=== PATIENT | male | born 1980 | race Caucasian/White ===

== ENCOUNTER 2022-03-18 11:15 | Inpatient (IN) | payer MEDICAID ==
[~2022-03-18] VITALS: Ht 175.3 cm; Wt 57.4 kg
[2022-03-18 11:15] VITALS: BP_SYST 162
--- NOTE | 2022-03-18 11:25 | NUR ---
RECEIVED PT FROM SHANEKA GÓMEZ. PT BIBS FOR C/O DIZZINESS FROM DRIVING OCCURING ONE HOUR AGO AND BRIGHT RED BLOODY STOOL X2 IN THE LAST 24 HOURS. PT IS AAOX4. RESP E/U. ON R/A. DENIES N/V/D/C. DISTAL PULSES NORMAL, SKIN WARM, NO EDEMA. PT DENIES PAIN SIDERAILS UP X2.
--- NOTE | 2022-03-18 11:25 | NUR ---
DR. TESFAYE AT BEDSIDE TO ASSESS PT.
--- NOTE | 2022-03-18 11:52 | NUR ---
EKG OBTAINED. PT TAKEN FOR CT SCAN AND XRAY.
[2022-03-18 12:01] LABS: BASOPHILS # (AUTO) 0.1 K/uL (0.0-0.2); BASOPHILS % (AUTO) 0.8 % (0.0-2.0); EOSINOPHILS % (AUTO) 0.4 % (0.0-4.0); HEMATOCRIT 38.2 % (36-54); LYMPHOCYTES # (AUTO) 0.6 K/uL (1.0-5.5); LYMPHOCYTES % (AUTO) 7.8 % (20.5-51.5); MEAN CORPUSCULAR VOLUME 96 fL (79.0-98.0); MONOCYTES # (AUTO) 0.6 K/uL (0.0-1.0); MONOCYTES % (AUTO) 7.9 % (1.7-9.3); NEUTROPHILS % (AUTO) 83.1 % (40.0-70.0); PLATELET COUNT (AUTO) 162 K/uL (130-430); RED CELL DISTRIBUTION WIDTH 16.6 % (9.0-15.0); WHITE BLOOD COUNT (AUTO) 7.3 K/uL (4.8-10.8)
[2022-03-18 12:16] LABS: ANION GAP 15 (5-15); CALCIUM 8.2 mg/dL (8.4-11.0); CHLORIDE 97 mmol/L (98-107); CREATININE 7.29 mg/dL (0.55-1.30); UREA NITROGEN, BLOOD 96 mg/dL (8-21)
[2022-03-18 12:20] LABS: PROTHROMBIN TIME 10.4 SECS (9.5-12.5)
[2022-03-18 12:27] LABS: ALANINE AMINOTRANSFERASE 14 U/L (12-78); ALBUMIN 3.1 g/dL (3.4-4.8); ASPARTATE AMINOTRANSFERASE 9 U/L (10-37); TOTAL BILIRUBIN 0.5 mg/dL (0.0-1.0)
[2022-03-18 12:36] LABS: GFR AFRICAN AMERICAN 11 mL/min (>90)
[2022-03-18 12:45] LABS: GLUCOSE 453 mg/dL (70-99); POTASSIUM 6.1 mmol/L (3.5-5.1)
--- NOTE | 2022-03-18 12:47 | NUR ---
CRITICALS RECEIVED, DR TESFAYE AND PRIMARY RN INFORMED. PT ON BEEF TRIMMER.
--- NOTE | 2022-03-18 13:05 | NUR ---
COVID test given to lab at 12:58
[2022-03-18] MEDS ORDERED: SODIUM POLYSTYRENE SULFONATE 15 GM/60 ML UDBTL PO ONE (13:15)
[2022-03-18] MEDS ORDERED: NACL 0.9% 1,000 ML IV ONE (13:15)
[2022-03-18] MEDS ORDERED: SODIUM BICARBONATE 8.4% JECT 50 MEQ/50 ML SYRINGE IVP ONE (13:15)
--- NOTE | 2022-03-18 13:20 | NUR ---
per ed admitting, chandler, insurance office is not answering and unable to get ahold of anyone. per facesheet: [facility]
[2022-03-18] MEDS ORDERED: D5NS 500 ML IV ONE ×2 (15:15→15:30)
--- NOTE | 2022-03-18 15:25 | NUR ---
DR. HERNANDEZ AND DR. CADENA MADE AWARE OF CONSULT REQUEST FOR SERVICE. CONSENT OBTAINED FOR PERMACATH.
--- NOTE | 2022-03-18 16:02 | NUR ---
DR. CADENA AT BEDSIDE, PREFORMED SANFORD CATH PLACEMENT TO LEFT UPPER CHEST, 2 LUMENS. SITE COVERED WITH CDI OCCLUSIVE DRESSING. PT TOLERATED PROCEDURE WELL.
[2022-03-18] MEDS ORDERED: ACET325T53 PO (17:03)
[2022-03-18] MEDS ORDERED: LIP80 PO (17:04)
[2022-03-18] MEDS ORDERED: ASPI-1393 PO (17:04)
[2022-03-18] MEDS ORDERED: CARV6.2554 PO (17:05)
[2022-03-18] MEDS ORDERED: CYAN100010 PO (17:07)
[2022-03-18] MEDS ORDERED: CYAN100T44 PO (17:07)
[2022-03-18] MEDS ORDERED: DORZ1DRO7 OP (17:07)
--- NOTE | 2022-03-18 17:07 | NUR ---
Patient will be admitted to care of SHANEKA LEONARD. Admitted to TELEMETRY unit. Will go to room 123A. Belongings list completed. Complete and up to date summary report printed. SBAR report to be given at bedside with opportunity for questions.
[2022-03-18] MEDS ORDERED: FAMO10TA41 PO (17:10)
[2022-03-18] MEDS ORDERED: FER300L PO (17:11)
[2022-03-18] MEDS ORDERED: OMEG-158 PO (17:12)
[2022-03-18] MEDS ORDERED: NEU300 PO (17:13)
[2022-03-18] MEDS ORDERED: XALEYE OP (17:15)
[2022-03-18] MEDS ORDERED: LOSA25TA3 PO (17:16)
[2022-03-18] MEDS ORDERED: HYDR-3927 PO (17:17)
[2022-03-18] MEDS ORDERED: CLOP100P MC (17:18)
[2022-03-18] MEDS ORDERED: FOLI-43 PO (17:21)
[2022-03-18] MEDS ORDERED: REN800 PO ×2 (17:21)
[2022-03-18 17:52] VITALS: BP_SYST 157
[2022-03-18] MEDS ORDERED: CALCIUM GLUCONATE 2 GM in NS 100 ML IV ONE (18:00)
--- NOTE | 2022-03-18 18:45 | NUR ---
patient has 795 dollars in tate bedside. offered patient to place money in hospital safe. patient refused. wants tate bedside. tate handed back to patient. patient informed staff is not responsible for tate if it is bedside. patient states he understands and confirms he would like tate bedside with him. tate verified by 2 SHANEKA Singer
[2022-03-18 20:30] VITALS: BP_SYST 170
[2022-03-18] MEDS ORDERED: HEPARIN SODIUM,PORCINE 5,000 UNITS/ML VIAL IVP ONE (20:45)
--- NOTE | 2022-03-18 21:00 | NUR ---
Patient resting in bed, unlabored breathing on room air, no complaint of pain or distress noted. Dialysis in progress.
--- NOTE | 2022-03-19 00:45 | NUR ---
Dialysis completed earlier with 2.6 L out. Patient has refused ordered IV fluids, calcium, and lab draw for BMP that was delayed until after dialysis. Dr. Lemon was at bedside to see patient and was made aware of patient's refusal and pre-dialysis labs. Per Dr. Lemon, ok to hold IV fluids and calcium and to wait for morning lab draws. Dr. Lemon also stated that patient may need permanent dialysis access before discharge.
[2022-03-19 01:15] VITALS: BP_SYST 146
[2022-03-19] MEDS ORDERED: ACETAMINOPHEN 325 MG TABLET PO PRN (02:00)
[2022-03-19] MEDS ORDERED: HYDROcodone/ACETAMIN 10-325 MG TAB PO PRN (02:00)
--- NOTE | 2022-03-19 07:30 | NUR ---
Patient sleeping in bed, unlabored breathing on room air. Report given to oncoming nurse.
[2022-03-19 07:49] LABS: BASOPHILS # (AUTO) 0.1 K/uL (0.0-0.2); BASOPHILS % (AUTO) 0.9 % (0.0-2.0); EOSINOPHILS % (AUTO) 0.8 % (0.0-4.0); HEMATOCRIT 36.9 % (36-54); LYMPHOCYTES # (AUTO) 0.7 K/uL (1.0-5.5); LYMPHOCYTES % (AUTO) 12.6 % (20.5-51.5); MEAN CORPUSCULAR VOLUME 94 fL (79.0-98.0); MONOCYTES # (AUTO) 0.6 K/uL (0.0-1.0); MONOCYTES % (AUTO) 10.2 % (1.7-9.3); NEUTROPHILS # (AUTO) 4.3 K/uL (1.8-7.7); NEUTROPHILS % (AUTO) 75.5 % (40.0-70.0); PLATELET COUNT (AUTO) 162 K/uL (130-430); RED BLOOD CELL COUNT(AUTO) 3.94 MIL/uL (4.2-6.2); RED CELL DISTRIBUTION WIDTH 15.8 % (9.0-15.0); WHITE BLOOD COUNT (AUTO) 5.7 K/uL (4.8-10.8)
--- NOTE | 2022-03-19 07:52 | NUR ---
arrived bedside to introduce and inform patient care plan for the day. patient refused morning vitals. will attempt to take vitals once patient agrees.
[2022-03-19 08:00] VITALS: BP_SYST 156
[2022-03-19 08:21] LABS: CREATININE 5.1 mg/dL (0.55-1.30); POTASSIUM 4.1 mmol/L (3.5-5.1)
[2022-03-19] MEDS ORDERED: CLOPIDOGREL BISULFATE 75 MG TABLET PO SCH (09:00)
[2022-03-19] MEDS ORDERED: CYANOCOBALAMIN 1000 mCg TABLET PO SCH (09:00)
[2022-03-19] MEDS: LOSARTAN POTASSIUM 25 MG TABLET PO SCH ×2 (09:17→21:11)
[2022-03-19] MEDS: FAMOTIDINE 20 MG TABLET PO SCH (09:17)
[2022-03-19] MEDS: FOLIC ACID 1 MG TABLET PO SCH (09:17)
[2022-03-19] MEDS: FERROUS SULFATE 300 MG/5 ML UDC PO SCH ×2 (09:17→21:09)
[2022-03-19] MEDS: TIMOLOL MALEATE 0.25% OPHTHALMIC DROPS 5 ML OP SCH ×2 (09:17→21:16)
[2022-03-19] MEDS: OMEGA-3/DHA/EPA/FISH OIL 1 GM CAPSULE PO SCH ×2 (09:17→21:11)
[2022-03-19] MEDS: DORZOLAMIDE 2% OPHTHALMIC SOLN 5ML OP SCH ×3 (09:17→21:18)
[2022-03-19] MEDS: GABAPENTIN 300 MG CAPSULE PO SCH (09:18)
[2022-03-19] MEDS: ASPIRIN 81 MG TABLET(ECOTRIN) PO SCH (09:18)
[2022-03-19] MEDS: SEVELAMER CARBONATE 800 MG TABLET PO SCH ×3 (09:19→17:00)
[2022-03-19] MEDS ORDERED: SEVELAMER HCL Non-Formulary 800 MG TABLET PO SCH (10:00)
[2022-03-19 12:00] VITALS: BP_SYST 156
[2022-03-19 16:00] VITALS: BP_SYST 163
--- NOTE | 2022-03-19 19:30 | NUR ---
RECEIVED REPORT FROM DAY SHIFT NURSE. PT AWAKE AND ORIENTED. DENIED ANY DISTRESS.
[2022-03-19 20:00] VITALS: BP_SYST 156
[2022-03-19] MEDS: LATANOPROST 2.5 ML DROPS (XALATAN) OP SCH ×2 (21:00→21:12)
[2022-03-19] MEDS: ATORVASTATIN 20 MG TABLET PO SCH (21:10)
--- NOTE | 2022-03-19 21:15 | NUR ---
CONSULTATION PAGED/CALLED Reason for Consultation: PERMAVATH PLACEMENT Person Who was Notified:LATOYA Consulting Physician: Karyn ATWOOD Specialty: Ordering Physician: Juve WOO Addendum: 03/19/22 at 2120 by Jaz Mahoney CNA DOCTOR HORVATH IS COVERING FOR RAI
--- NOTE | 2022-03-19 21:36 | NUR ---
CONSULTATION PAGED/CALLED Reason for Consultation: PERMACATH PACEMENT Person Who was Notified: ALEXANDRU Consulting Physician: ALEXANDRU Legal Word Processor Specialty: Ordering Physician: Juve WOO
[2022-03-19] MEDS: CARVEDILOL 6.25 MG TABLET (COREG) PO SCH (22:33)
[2022-03-20] VITALS: BP_SYST 149
--- NOTE | 2022-03-20 00:08 | NUR ---
CONSULTATION PAGED/CALLED Reason for Consultation: CAD Person Who was Notified:KANDIS Consulting Physician: PINO Beater And Pulper Feeder Specialty: Ordering Physician: Juve WOO
[2022-03-20 04:15] VITALS: BP_SYST 148
--- NOTE | 2022-03-20 06:49 | NUR ---
PT SLEPT WELL. NO C/O ANY DISTRESS. PT NONCOMPLIANT WITH MEDICATION. CHANGED BILATERAL STUMP DRESSING-WTD. LEFT IJ SANFORD CATHETER-DRESSING INTACT.
--- NOTE | 2022-03-20 07:25 | NUR ---
opening note Received SBAR to night RN. Patient in bed, respirations even, non labored, bed in low and locked position call light within reach,
--- NOTE | 2022-03-20 07:38 | NUR ---
SBAR WAS GIVEN TO NIKO MUNROE.
[2022-03-20 08:00] VITALS: BP_SYST 155
[2022-03-20] MEDS: SEVELAMER CARBONATE 800 MG TABLET PO SCH ×4 (08:49→17:31)
[2022-03-20] MEDS: FERROUS SULFATE 300 MG/5 ML UDC PO SCH ×3 (08:50→20:48)
--- NOTE | 2022-03-20 08:50 | NUR ---
refused medication patient refused ferrous sulfate, educated patient on the indications of medication, patient verbalized understanding, continued to refuse medication
[2022-03-20] MEDS: LOSARTAN POTASSIUM 25 MG TABLET PO SCH ×2 (08:51→20:49)
[2022-03-20] MEDS: FOLIC ACID 1 MG TABLET PO SCH (08:55)
[2022-03-20] MEDS: TIMOLOL MALEATE 0.25% OPHTHALMIC DROPS 5 ML OP SCH ×2 (08:55→20:51)
[2022-03-20] MEDS: OMEGA-3/DHA/EPA/FISH OIL 1 GM CAPSULE PO SCH ×2 (08:55→20:49)
[2022-03-20] MEDS: ASPIRIN 81 MG TABLET(ECOTRIN) PO SCH (08:56)
[2022-03-20] MEDS: GABAPENTIN 300 MG CAPSULE PO SCH (08:56)
[2022-03-20] MEDS: DORZOLAMIDE 2% OPHTHALMIC SOLN 5ML OP SCH ×3 (08:56→20:51)
[2022-03-20] MEDS: CYANOCOBALAMIN 1000 mCg TABLET PO SCH (08:56)
[2022-03-20] MEDS: FAMOTIDINE 20 MG TABLET PO SCH (08:56)
--- NOTE | 2022-03-20 11:40 | NUR ---
HIGH ALERT NOTE: Called Dr. hale back at identified within the medical roster to verify physician authenticity.
[2022-03-20] MEDS ORDERED: HEPARIN SODIUM,PORCINE 5,000 UNITS/ML VIAL MC ONE (11:45)
[2022-03-20 12:16] VITALS: BP_SYST 138
--- NOTE | 2022-03-20 12:45 | NUR ---
dialysis completed 2.5L out
--- NOTE | 2022-03-20 12:59 | NUR ---
refused medication patient refused medication, educated to the indications of medication, patient continued to refuse
--- NOTE | 2022-03-20 14:48 | NUR ---
refused medication patient refused medication, educated to the indications of medication, patient continued to refuse
--- NOTE | 2022-03-20 15:00 | NUR ---
nurse note patient upset regarding the wait for procedure to have perma cath inserted. Informed that we are waiting on the surgeon to come in and make arrangements. Patient states that he should just go home and wait. Informed patient that surgeon should be in today or tomorrow.
[2022-03-20 16:00] VITALS: BP_SYST 162
--- NOTE | 2022-03-20 16:00 | NUR ---
spoke with dr Jackson regarding possible surgery tomorrow. New orders received.
[2022-03-20 16:34] LABS: BILIRUBIN,URINE NEGATIVE (NEGATIVE); BLOOD, URINE 2+ (NEGATIVE); CLARITY/URINE CLEAR (CLEAR); COLOR,URINE YELLOW (YELLOW); GLUCOSE,URINE 3+ (NEGATIVE); KETONES,URINE TRACE (NEGATIVE); LEUKOCYTE ESTERASE ,URINE NEGATIVE (NEGATIVE); NITRITE, URINE NEGATIVE (NEGATIVE); PROTEIN URINE 3+ (NEGATIVE); UROBILINOGEN,URINE 0.2 (0.2-1.0)
[2022-03-20 16:49] LABS: BACTERIA,URINE FEW /HPF (None Seen); MUCUS,URINE None Seen /LPF (None Seen); WBC,URINE 0-3 /HPF (0-3)
--- NOTE | 2022-03-20 17:31 | NUR ---
refused medication refused medication, educated patient on the indications patient continued to refuse
--- NOTE | 2022-03-20 18:28 | NUR ---
MD DR HERNANDEZ BEDSIDE EXAMINING PATIENT
--- NOTE | 2022-03-20 18:54 | NUR ---
NURSE NOTE PATIENT IN BED,RESPIRATIONS EVEN, NON LABORED, BED IN LOW AND LOCKED POSITION, CALL LIGHT WITHIN REACH. DENIES ANY PAIN OR DISCOMFORT.
--- NOTE | 2022-03-20 18:56 | NUR ---
TRANSLATION YANDEL DASILVA WAS ABLE TO HELP WITH PERUVIAN TRANSLATION BETWEEN PATIENT AND MYSELF TODAY
--- NOTE | 2022-03-20 19:20 | NUR ---
CLOSING NOTE PROVIDED SBAR TO NIGHT RN, PATIENT IN BED, RESPIRATIONS EVEN, NON LABORED, BED IN LOW AND LOCKED POSITION,CALL LIGHT WITHIN REACH. ENDORSED WOUND CARE AND COMPLETION OF SURGICAL CHECKLIST TO NIGHT RN. ENDORSED CARE TO NIGHT RN
--- NOTE | 2022-03-20 19:55 | NUR ---
DR.MULLANGI TOVAR HERE TO SEE THE PATIENT AND DISCUSS WITH PATIENT THE PROCEDURE FOR THE INSERTION OF TUNNELED HEMODIALYSIS CATHETER WITH INWEAVER ALBA ON THE IPAD #[id number] FOR [employer] SCHEDULED TOMORROW. WILL CONTINUE TO MONITOR.
[2022-03-20] MEDS: CARVEDILOL 6.25 MG TABLET (COREG) PO SCH (20:49)
[2022-03-20] MEDS: ATORVASTATIN 20 MG TABLET PO SCH (20:50)
[2022-03-20] MEDS: LATANOPROST 2.5 ML DROPS (XALATAN) OP SCH (20:50)
[2022-03-21 00:46] VITALS: BP_SYST 137
--- NOTE | 2022-03-21 03:10 | NUR ---
NOTES PATIENT AWAKE, NO COMPLAINTS AT THIS TIME, WOUND CARE AND CHG BATH DONE. WILL CONTINUE TO MONITOR.
--- NOTE | 2022-03-21 07:20 | NUR ---
opening note Received SBAR from night RN. Patient in bed respirations even, non labored, bed in low and locked position, call light within reach. NPO for surgery
--- NOTE | 2022-03-21 07:53 | NUR ---
REFUSED JPATIENT REFUSED MORNING VITALS
[2022-03-21] MEDS: SEVELAMER CARBONATE 800 MG TABLET PO SCH ×3 (08:00→18:15)
--- NOTE | 2022-03-21 08:15 | NUR ---
physical assessment patient refused physical assessment. educated regarding the indications for assessment, patient ignored me.
[2022-03-21] MEDS: DORZOLAMIDE 2% OPHTHALMIC SOLN 5ML OP SCH ×4 (09:00→23:42)
[2022-03-21] MEDS: GABAPENTIN 300 MG CAPSULE PO SCH ×2 (09:00→09:37)
[2022-03-21] MEDS: FOLIC ACID 1 MG TABLET PO SCH (09:00)
[2022-03-21] MEDS: FERROUS SULFATE 300 MG/5 ML UDC PO SCH ×2 (09:00→23:35)
[2022-03-21] MEDS: CYANOCOBALAMIN 1000 mCg TABLET PO SCH (09:00)
[2022-03-21] MEDS: ASPIRIN 81 MG TABLET(ECOTRIN) PO SCH (09:00)
[2022-03-21] MEDS: LOSARTAN POTASSIUM 25 MG TABLET PO SCH ×2 (09:00→23:34)
[2022-03-21] MEDS: TIMOLOL MALEATE 0.25% OPHTHALMIC DROPS 5 ML OP SCH ×3 (09:00→23:41)
[2022-03-21] MEDS: FAMOTIDINE 20 MG TABLET PO SCH (09:00)
[2022-03-21] MEDS: OMEGA-3/DHA/EPA/FISH OIL 1 GM CAPSULE PO SCH ×2 (09:00→23:34)
[2022-03-21 09:38] LABS: CALCIUM 8.2 mg/dL (8.4-11.0); POTASSIUM 4.5 mmol/L (3.5-5.1)
--- NOTE | 2022-03-21 10:47 | NUR ---
tele monitor patient was off the monitor, i went in to re attach, patient refused said "my heart is fine, no I don't want it". educated patient regarding the indications of tele monitor. patient did not reply
--- NOTE | 2022-03-21 13:15 | NUR ---
Notes Patient very upset and noncompliant with interventions throughout the morning. Patient has declined from his nurse SHANEKA Singer and other nurses to take his vital signs and to have tele monitor on. Patient stated that his heart is well and does not need to be monitored. Surgery nurse was in the room, trying to prep patient for surgery. Patient was putting on his regular clothing stating that if he isn't receiving the surgery soon he's rather go home. Patient started speaking Urdu stating that he is upset with his experience, his dinner from last night was not up to his par. Patient upset that he has not eaten since last night and that he needs to eat because he is a diabetic. Patient was educated numerous times why he is NPO, for surgery, and educated on his diet. Patient started increasing the volume on his phone and stated to leave him alone. Security was called in case patient decided to leave AMA. Dr. Hall came to see patient at bedside at this time explaining the importance for the patient to stay and continue with the treatment plan.Patient was educated in the risks of leaving AMA and that he is responsible for outcomes if he insists on leaving AMA. Patient was looking at his phone during the whole interaction. Patient chose to continue with surgery plan. Patient was given a clean gown and was starting to change.
[2022-03-21 13:42] LABS: HEMATOCRIT 37.7 % (36-54); MEAN CORPUSCULAR VOLUME 93 fL (79.0-98.0); PLATELET COUNT (AUTO) 175 K/uL (130-430); RED BLOOD CELL COUNT(AUTO) 4.06 MIL/uL (4.2-6.2); RED CELL DISTRIBUTION WIDTH 15.5 % (9.0-15.0); WHITE BLOOD COUNT (AUTO) 5.7 K/uL (4.8-10.8)
--- NOTE | 2022-03-21 15:17 | NUR ---
patient in the room with video email marketing assistant ID [id number] and Nurse Julita as witness. informed patient that surgery was cancelled for the day due to patient inion medication plavix that was only discontinued [address] Lindquist, needs 3 more days to be off of plavix. I informed patient that we will order him his lunch and will call dialysis nurse for his scheduled dialysis today. Patient was not happy and that he wants to leave against medical advice. [facility] already informed the RN that they will not take patient back without a doctors order. Patient stopped talking to us / ended the video call with the email marketing assistant by calling somebody on his cell
[2022-03-21 15:19] LABS: BAND % (MANUAL) 0 % (0-6); BASOPHILS % (MANUAL) 0 % (0-2); EOSINOPHILS % (MANUAL) 0 % (0-7); LYMPHOCYTES % (MANUAL) 15 % (20-46); MONOCYTES % (MANUAL) 3 % (0-11)
--- NOTE | 2022-03-21 15:45 | NUR ---
canceled surgery surgery cancel for today patient has only been on off of Plavix x [address] Contreras, patient must be off for a total of 5 days before procedure can be done. MD younger
[2022-03-21] MEDS ORDERED: DEXTROSE 50% JECT 50 ML DISP.SYRIN IVP PRN (16:30)
[2022-03-21] MEDS: INSULIN REGULAR, HUMAN 100 UNITS/ML, 3 ML VIAL (humuLIN R) SUBCUT PRN (16:54)
[2022-03-21] MEDS ORDERED: INSULIN REGULAR, HUMAN 100 UNITS/ML, 3 ML VIAL SUBCUT SCH (17:00)
--- NOTE | 2022-03-21 17:00 | NUR ---
dialysis Patient refused dialysis. launderette attendant notified Dr. Longo.
--- NOTE | 2022-03-21 19:15 | NUR ---
closing note Provided SBAR to night RN. Patient in bed, respirations even, non labored, bed in low and locked position, call light within reach. Endorsed care to Night RN.
[2022-03-21 20:42] VITALS: BP_SYST 157
[2022-03-21] MEDS: CARVEDILOL 6.25 MG TABLET (COREG) PO SCH (21:00)
[2022-03-21] MEDS: ATORVASTATIN 20 MG TABLET PO SCH (23:34)
[2022-03-21] MEDS: LATANOPROST 2.5 ML DROPS (XALATAN) OP SCH (23:41)
[2022-03-22] MEDS: INSULIN REGULAR, HUMAN 100 UNITS/ML, 3 ML VIAL (humuLIN R) SUBCUT PRN (07:05)
[2022-03-22 07:09] VITALS: BP_SYST 149
[2022-03-22 08:00] VITALS: BP_SYST 158
[2022-03-22] MEDS: SEVELAMER CARBONATE 800 MG TABLET PO SCH ×3 (10:14→18:04)
[2022-03-22] MEDS: FERROUS SULFATE 300 MG/5 ML UDC PO SCH ×2 (10:14→21:22)
[2022-03-22] MEDS: CYANOCOBALAMIN 1000 mCg TABLET PO SCH (10:15)
[2022-03-22] MEDS: OMEGA-3/DHA/EPA/FISH OIL 1 GM CAPSULE PO SCH ×2 (10:15→21:00)
[2022-03-22] MEDS: LOSARTAN POTASSIUM 25 MG TABLET PO SCH ×2 (10:15→21:43)
[2022-03-22] MEDS: GABAPENTIN 300 MG CAPSULE PO SCH (10:15)
[2022-03-22] MEDS: FAMOTIDINE 20 MG TABLET PO SCH (10:15)
[2022-03-22] MEDS: ASPIRIN 81 MG TABLET(ECOTRIN) PO SCH (10:15)
[2022-03-22] MEDS: FOLIC ACID 1 MG TABLET PO SCH (10:15)
[2022-03-22] MEDS: TIMOLOL MALEATE 0.25% OPHTHALMIC DROPS 5 ML OP SCH ×2 (10:19→21:45)
[2022-03-22] MEDS: DORZOLAMIDE 2% OPHTHALMIC SOLN 5ML OP SCH ×3 (10:19→21:44)
[2022-03-22 12:00] VITALS: BP_SYST 140
[2022-03-22] MEDS ORDERED: ALTEPLASE 100 MG VIAL IVP ONE (13:00)
[2022-03-22] MEDS ORDERED: ALTEPLASE 2 MG VIAL MC ONE ×2 (13:30→14:00)
[2022-03-22 16:00] VITALS: BP_SYST 150
[2022-03-22] MEDS ORDERED: HEPARIN SODIUM,PORCINE 5,000 UNITS/ML VIAL SUBCUT SCH ×2 (18:15)
[2022-03-22] MEDS ORDERED: HEPARIN SODIUM,PORCINE 5,000 UNITS/ML VIAL MC ONE (18:45)
[2022-03-22] MEDS ORDERED: HEPARIN SODIUM,PORCINE 5,000 UNITS/ML VIAL SUBCUT ONE (18:45)
[2022-03-22] MEDS: CARVEDILOL 6.25 MG TABLET (COREG) PO SCH (21:00)
[2022-03-22] MEDS: ATORVASTATIN 20 MG TABLET PO SCH (21:22)
[2022-03-22 21:40] VITALS: BP_SYST 147
[2022-03-22] MEDS: LATANOPROST 2.5 ML DROPS (XALATAN) OP SCH (21:44)
[2022-03-23 08:00] VITALS: BP_SYST 146
[2022-03-23 11:44] VITALS: BP_SYST 146
[2022-03-23] MEDS: SEVELAMER CARBONATE 800 MG TABLET PO SCH ×2 (12:37→18:00)
[2022-03-23] MEDS: GABAPENTIN 300 MG CAPSULE PO SCH (12:37)
[2022-03-23] MEDS: CYANOCOBALAMIN 1000 mCg TABLET PO SCH (12:38)
[2022-03-23] MEDS: ASPIRIN 81 MG TABLET(ECOTRIN) PO SCH (12:38)
[2022-03-23] MEDS: LOSARTAN POTASSIUM 25 MG TABLET PO SCH ×2 (12:38→21:00)
[2022-03-23] MEDS: FAMOTIDINE 20 MG TABLET PO SCH (12:38)
[2022-03-23] MEDS: FERROUS SULFATE 300 MG/5 ML UDC PO SCH ×2 (12:39→21:00)
[2022-03-23] MEDS: TIMOLOL MALEATE 0.25% OPHTHALMIC DROPS 5 ML OP SCH ×2 (12:39→21:00)
[2022-03-23] MEDS: FOLIC ACID 1 MG TABLET PO SCH (12:40)
[2022-03-23] MEDS: OMEGA-3/DHA/EPA/FISH OIL 1 GM CAPSULE PO SCH ×2 (12:40→21:00)
[2022-03-23] MEDS: DORZOLAMIDE 2% OPHTHALMIC SOLN 5ML OP SCH ×2 (12:40→21:00)
--- NOTE | 2022-03-23 13:30 | NUR ---
PT REQUESTED TO TO LEAVE AMA. RETORT FURNACE OPERATOR MR. REVELES ACCESSED VIA [employer]. PT EXPRESSED CONCERNS THAT HE HAS BEEN HERE SINCE TUESDAY AND DID NOT HAVE PERMACATH PLACED. I EXPLAINED TO PT PER CHARGE NURSE RAFAL, HE HAS TO BE OFF PLAVIX FOR 5 DAYS BEFORE CATH PLACEMENT, TOMORROW WILL BE THE DAY NUMBER 5. I EXPLAINED RISK TO PT IF HE DECIDED TO LEAVE AMA. I ALSO INFORMED PT THAT I WILL FOLLOW UP WITH MD FOR AN UPDATE. PT VERBALIZED UNDERSTANDING OF RISK AND AGREED TO STAY HERE AT THE HOSPITAL.
[2022-03-23 18:41] VITALS: BP_SYST 154
--- NOTE | 2022-03-23 19:05 | NUR ---
consultation Paged Dr Walter for consultation for perma cath placement spoke with Ivania
--- NOTE | 2022-03-23 19:12 | NUR ---
CONSULTATION DR VILLA CALLED REGARDING PERMA CATH PLACEMENT. STATED HE NO LONGER DOES CONSULTATIONS AT [facility]. DIE CAST ENGINEER NOTIFIED
--- NOTE | 2022-03-23 19:25 | NUR ---
CONSULTATION PAGED PAGED DR ATWOOD FOR CONSULTATION FOR PERMA CATH PLACEMENT. SPOKE WITH FAZAL
--- NOTE | 2022-03-23 19:30 | NUR ---
Patient is awake and alert. No s/s of distress. Informed pt that we are waiting for the surgeon's call back regarding permacath placement and patient got irritated and told staff that surgery will be tomorrow. Will follow up with .
[2022-03-23 20:00] VITALS: BP_SYST 158
[2022-03-23] MEDS: LATANOPROST 2.5 ML DROPS (XALATAN) OP SCH (21:00)
[2022-03-23] MEDS: ATORVASTATIN 20 MG TABLET PO SCH (21:00)
[2022-03-23] MEDS: CARVEDILOL 6.25 MG TABLET (COREG) PO SCH (21:00)
--- NOTE | 2022-03-23 21:30 | NUR ---
Patient refused PO and eye drop meds. Only allowed bond writer to administer fingerstick and regular insulin. Explained to pt the importance of taking his prescribed/ordered medications but patient gets irritated and still refused his meds.
[2022-03-23] MEDS: INSULIN REGULAR, HUMAN 100 UNITS/ML, 3 ML VIAL (humuLIN R) SUBCUT PRN (21:43)
[2022-03-24 00:44] VITALS: BP_SYST 156
--- NOTE | 2022-03-24 05:57 | NUR ---
Paged Dr. Castaneda regarding Permacath placement on pager # [phone] and also called exchange [phone], spoke with data coder operator and freelance copywriter was told that MD will be paged.
--- NOTE | 2022-03-24 06:27 | NUR ---
CONSULTATION: SPoke with Dr. Castaneda and told short story writer that he might be able to to the Permacath Placement tomorrow 03/25/2022 but unsure of the time due to his busy schedule. Charge nurse made aware.
[2022-03-24 07:06] LABS: BASOPHILS # (AUTO) 0.1 K/uL (0.0-0.2); BASOPHILS % (AUTO) 1.2 % (0.0-2.0); EOSINOPHILS # (AUTO) 0.1 K/uL (0.0-0.4); EOSINOPHILS % (AUTO) 1.9 % (0.0-4.0); HEMATOCRIT 39.1 % (36-54); LYMPHOCYTES # (AUTO) 1.1 K/uL (1.0-5.5); MEAN CORPUSCULAR HEMOGLOBIN 30 pg (27-31); MEAN CORPUSCULAR HGB CONC 33 % (32-36); MEAN CORPUSCULAR VOLUME 91 fL (79.0-98.0); MONOCYTES # (AUTO) 0.6 K/uL (0.0-1.0); MONOCYTES % (AUTO) 10.1 % (1.7-9.3); NEUTROPHILS # (AUTO) 3.9 K/uL (1.8-7.7); NEUTROPHILS % (AUTO) 67.8 % (40.0-70.0); PLATELET COUNT (AUTO) 164 K/uL (130-430); RED BLOOD CELL COUNT(AUTO) 4.28 MIL/uL (4.2-6.2); RED CELL DISTRIBUTION WIDTH 15.1 % (9.0-15.0); WHITE BLOOD COUNT (AUTO) 5.8 K/uL (4.8-10.8)
--- NOTE | 2022-03-24 07:09 | NUR ---
06:40. Patient is awake and alert, no s/s of distress or bleeding. No significant changes overnight. Bilateral foot stumps wounds cleansed with NS and dressings were changed with non-adherent gauze and kerlix wrap. To endorse to day nurse.
[2022-03-24 08:00] VITALS: BP_SYST 148; BP_SYST 149
[2022-03-24] MEDS: SEVELAMER CARBONATE 800 MG TABLET PO SCH ×4 (08:00→18:00)
[2022-03-24 09:33] LABS: CALCIUM 8.4 mg/dL (8.4-11.0); CREATININE 7.23 mg/dL (0.55-1.30)
[2022-03-24] MEDS: FAMOTIDINE 20 MG TABLET PO SCH (09:33)
[2022-03-24] MEDS: CYANOCOBALAMIN 1000 mCg TABLET PO SCH (09:33)
[2022-03-24] MEDS: OMEGA-3/DHA/EPA/FISH OIL 1 GM CAPSULE PO SCH ×2 (09:33→20:52)
[2022-03-24] MEDS: FOLIC ACID 1 MG TABLET PO SCH (09:34)
[2022-03-24] MEDS: LOSARTAN POTASSIUM 25 MG TABLET PO SCH ×2 (09:34→20:50)
[2022-03-24] MEDS: GABAPENTIN 300 MG CAPSULE PO SCH (09:35)
[2022-03-24] MEDS: ASPIRIN 81 MG TABLET(ECOTRIN) PO SCH (09:36)
[2022-03-24] MEDS: DORZOLAMIDE 2% OPHTHALMIC SOLN 5ML OP SCH ×3 (09:37→21:00)
[2022-03-24] MEDS: TIMOLOL MALEATE 0.25% OPHTHALMIC DROPS 5 ML OP SCH ×2 (09:37→21:00)
[2022-03-24] MEDS: FERROUS SULFATE 300 MG/5 ML UDC PO SCH ×2 (09:44→20:50)
--- NOTE | 2022-03-24 10:30 | NUR ---
OBSERVED PT WALKING IN HALLWAY FULLY CLOTHED WITH BACKPACK ON HIS BACK USING A FRONT WHEEL WALKER. PT STATED HE WAS LEAVING THE FACILITY,HAIDER SCHERER INTERPRETED. I REQUESTED PT TO GO BACK TO HIS ROOM SO I CAN REMOVE PIV AND L IJ OTTO CATH. ALSO I REQUESTED PT TO SIGN AMA FORM, USING STAFF HAIDER SCHERER TO INTERPRET. PT CONTINUED TO WALK TOWARDS EXIT. SECURITY CALLED. CHARGE NURSE OLEG TOOK OVER THE INCIDENT AT THIS POINT WHILE I CONTINUED TO WORK ON ANOTHER INCIDENT PERTAINING TO A DIFFERENT PT.
[2022-03-24 12:00] VITALS: BP_SYST 151
--- NOTE | 2022-03-24 12:44 | NUR ---
PATIENT PATIENT WAS SEEN IN THE HALLWAY UNSTEADY WALKING WITH A WALKER. BROUGHT BACK IN A WHEELCHAIR BY AND LAUREN FROM MEDICAL RECORDS AT THE NURSES STATION. PATIENT STATED THAT NOTHING IS BEING DONE AT THIS HOSPITAL FOR HIM HE WANTS TO GO TO ANOTHER HOSPITAL. PATIENT IS TO HAVE PERMANENT HD CATHETER PLACEMENT BUT PATIENT WAS ON PLAVIX. PATIENT CAME FROM [facility]. [facility] WILL NOT TAKE PATIENT BACK WITHOUT TRANSFER ORDER AND PATIENT WAS INFORMED OF THIS ON TUESDAY BY DIALYSIS EQUIPMENT TECHNICIAN. DR ATWOOD IS TO SEE THE PATIENT. AFTER EXPLAINING TO PATIENT INTERPRETED BY LAUREN, PATIENT AGREED TO GO BACK TO HIS ROOM
--- NOTE | 2022-03-24 13:36 | NUR ---
AROUND 1020 PLYWOOD LAYUP LINE CORE LAYER ARRIVED FOR TREATMENT. PER PLYWOOD LAYUP LINE CORE LAYER PT REFUSED DIALYSIS TREATMENT.
[2022-03-24] MEDS ORDERED: HEPARIN SODIUM,PORCINE 5,000 UNITS/ML VIAL MC ONE (15:15)
[2022-03-24] MEDS ORDERED: HEPARIN SODIUM, PORCINE 10,000 UNITS/ 10 ML VIAL ONE (15:23)
[2022-03-24] MEDS ORDERED: HEPARIN SODIUM,PORCINE 5,000 UNITS/ML VIAL ONE (15:24)
[2022-03-24] MEDS ORDERED: ALTEPLASE 2 MG VIAL MC ONE (15:45)
[2022-03-24 18:10] VITALS: BP_SYST 142
[2022-03-24 20:00] VITALS: BP_SYST 135
--- NOTE | 2022-03-24 20:00 | NUR ---
RECEIVED PATIENT IN BED, A/O X4 , NO DISTRESS NOTED, LEFT IJ SANFORD CATH INTACT, NO ID BAND NOTED, REQUEST ONE FROM ER . NO C/O PAIN AT THIS TIME, COFFEE AND SANDWICH PROVIDED PER PATIENT'S REQUEST. NEEDS MET
[2022-03-24] MEDS: ATORVASTATIN 20 MG TABLET PO SCH (20:51)
[2022-03-24] MEDS: LATANOPROST 2.5 ML DROPS (XALATAN) OP SCH (21:00)
[2022-03-24] MEDS: CARVEDILOL 6.25 MG TABLET (COREG) PO SCH (21:01)
[2022-03-24] MEDS: INSULIN REGULAR, HUMAN 100 UNITS/ML, 3 ML VIAL (humuLIN R) SUBCUT PRN (21:16)
--- NOTE | 2022-03-24 21:30 | NUR ---
REGULAR INSULIN 6 UNIT SQ GIVEN PER SLIDING SCALE FOR BS 275, INSTRUCTED PATIENT NPO FROM [place] FOR PROCEDURE TOMORROW, VERBALLY UNDERSTAND.
[2022-03-25] VITALS (7 sets, daily range): BP systolic 139–160
--- NOTE | 2022-03-25 02:06 | NUR ---
SLEEPING AT THIS TIME. NO DISTRESS NOTED.
--- NOTE | 2022-03-25 06:43 | NUR ---
patient refused RN to put iv insertion, he states no needle or iv at this time until the procedure. will endorse to next shift nurse.
--- NOTE | 2022-03-25 07:52 | NUR ---
Paged Dr Smith for update on permacath placement.
--- NOTE | 2022-03-25 07:53 | NUR ---
PAGED PAGED NONI HIGGINBOTHAM AT [phone] SPOKE WITH KARMA.
[2022-03-25] MEDS: SEVELAMER CARBONATE 800 MG TABLET PO SCH ×4 (08:00→18:26)
[2022-03-25] MEDS: FERROUS SULFATE 300 MG/5 ML UDC PO SCH ×2 (09:00→22:17)
[2022-03-25] MEDS: DORZOLAMIDE 2% OPHTHALMIC SOLN 5ML OP SCH ×3 (09:00→22:30)
[2022-03-25] MEDS: FOLIC ACID 1 MG TABLET PO SCH (09:00)
[2022-03-25] MEDS: CYANOCOBALAMIN 1000 mCg TABLET PO SCH (09:00)
[2022-03-25] MEDS: ASPIRIN 81 MG TABLET(ECOTRIN) PO SCH (09:00)
[2022-03-25] MEDS: TIMOLOL MALEATE 0.25% OPHTHALMIC DROPS 5 ML OP SCH ×2 (09:00→22:29)
[2022-03-25] MEDS: FAMOTIDINE 20 MG TABLET PO SCH (09:00)
[2022-03-25] MEDS: OMEGA-3/DHA/EPA/FISH OIL 1 GM CAPSULE PO SCH ×2 (09:00→22:17)
[2022-03-25] MEDS: LOSARTAN POTASSIUM 25 MG TABLET PO SCH ×2 (09:00→22:18)
[2022-03-25] MEDS: GABAPENTIN 300 MG CAPSULE PO SCH (09:00)
--- NOTE | 2022-03-25 10:33 | NUR ---
RESOURCE NURSE, IDRIS ASKED ME TO CALL THE SURGEON DR HORVATH. DR HORVATH AGREED TO SEE PT THIS AFTERNOON. HE ASKED IF PT IS NPO AND PT WAS KEPT NPO FOR THE PROCEDURE PER SHANEKA LANGSTON.
--- NOTE | 2022-03-25 11:10 | NUR ---
PER CONCRETE BATCH PLANT OPERATOR,RECEIVED CALL FROM DR HORVATH STATED TO KEEP PT NPO. STATED HE WILL COME LATER TODAY TO PLACE PERMACATH.
--- NOTE | 2022-03-25 13:21 | NUR ---
18G PIV TO LFA. ONE ATTEMPT. PT COOPERATIVE.
--- NOTE | 2022-03-25 14:10 | NUR ---
TRANSFER OF CARE Received care of patient from SHANEKA Escalona. Patient stabled, no sob, no distress, no pain. Patient is NPO pending surgery for perma cath placement. All needs met, bed locked in lowest position, call light within reach. Will continue to monitor.
--- NOTE | 2022-03-25 14:44 | NUR ---
OR Spoke with Jenniffer, from OR inquiring regarding PERMACATH placement by MD Adam. Per Jenniffer KHAN is ready but surgery status is backed up on two cases. Jenniffer will call me back regarding the time and to keep patient NPO until they otherwise states.
--- NOTE | 2022-03-25 16:17 | NUR ---
OR Patient just left to OR for Permacath placement. Per RN patient will be there for about 2 hours.
[2022-03-25] MEDS ORDERED: HEPARIN SODIUM,PORCINE 10,000 UNIT/ML VIAL ONE (17:24)
[2022-03-25] MEDS ORDERED: CEFAZOLIN 1 GM IVPB PREMIX 50 ML IV ONE (17:24)
[2022-03-25] MEDS ORDERED: HEPARIN SODIUM,PORCINE/NS/PF 1,000 UNITS/500 ML BAG IV ONE (17:24)
[2022-03-25] MEDS ORDERED: NS IRRIG SOLN 1000 ML IR ONE (17:24)
[2022-03-25] MEDS ORDERED: NS 1000 ML IV.SOLN IV ONE (17:24)
[2022-03-25] MEDS ORDERED: fentaNYL CITRATE/PF 100 MCG/2 ML AMP ONE (17:24)
[2022-03-25] MEDS ORDERED: MIDAZOLAM HCL 5 MG/ML VIAL (VERSED) IV ONE (17:24)
[2022-03-25] MEDS ORDERED: PROPOFOL 200MG/ 20ML VIAL (DIPRIVAN) IV ONE (17:24)
[2022-03-25] MEDS ORDERED: ePHEDrine sulfate 50 MG/ML VIAL ONE (17:24)
[2022-03-25] MEDS ORDERED: ONDANSETRON HCL 4 MG/2 ML VIAL IVP PRN (17:30)
[2022-03-25] MEDS ORDERED: MORPHINE 4 MG INJ. 4 MG/ML VIAL IVP PRN ×3 (17:30)
--- NOTE | 2022-03-25 18:01 | NUR ---
OR Patient returned from OR, Stable condition, no pain, no sob, no distress. Patient stated he was hungry and actually did not remember if he had surgery. Clear liquid diet given. Patient seems to be tolerated well. Safety checks in place, bed locked in lowest position. All needs met at this time, will continue to monitor.
--- NOTE | 2022-03-25 18:28 | NUR ---
DINNER Patient is stating that he wants dinner. He is upset that he is not being allowed to eat actual food. I explained to him that for now due to his post op surgery he needs to have a clear liquid diet. Patient is non-compliant and wishes to not take medications by mouth Renvela due to this.
--- NOTE | 2022-03-25 18:51 | NUR ---
CLOSING NOTE Patient stabled laying in bed, no sob, no distress, no pain. Patient has perma cath placement to Left upper side. Patient upset about dinner but educated on why he needs to be on clear liquid diet. All needs met, bed locked in lowest position, call light within reach. Will endorse to night shift manager nurse.
[2022-03-25] MEDS: CARVEDILOL 6.25 MG TABLET (COREG) PO SCH (22:19)
[2022-03-25] MEDS: ATORVASTATIN 20 MG TABLET PO SCH (22:20)
[2022-03-25] MEDS: LATANOPROST 2.5 ML DROPS (XALATAN) OP SCH (22:29)
--- NOTE | 2022-03-26 02:00 | NUR ---
MEDICATIONS NOT ADMINISTERED Patient was upset earlier d/t hunger and on a clear diet. Patient was willing to take medications once food was provided. Three eye drops were administered. When i returned with oral medication, pt was asleep. When I returned the second time to administer medications, he was willing then asked for food. Pt swatted me away and went back to sleep. Scheduled evening medications were not administered.
--- NOTE | 2022-03-26 02:15 | NUR ---
Rounds Patient resting with eyes closed, no distress. Respirations even and non labored. Safety precautions in place and call light w/in reach.
--- NOTE | 2022-03-26 07:00 | NUR ---
CLOSING NOTES Patient has been very difficult with other nurses on other shifts but was cooperative with me d/t my ability to speak Albanian. Pt slept most of the shift d/t recovering from surgical procedure for tunneled hemodialysis catheter on the left for dialysis. He is vocalizing his agitation with the care received during this current hospitalization. He added that the wounds on his feet (bilateral toe amputation) were not changed. There are no wound orders in his chart and he said the amputations were done 5 months ago. I reminded the pt that he has refused medications and most interventions so he is delaying his recovery and prolonging his stay. He smiled and allowed me to check his blood glucose. He denied blood draw initially but i was able to convince him to allow. He states no pain or discomfort but extremely hungry.
--- NOTE | 2022-03-26 07:30 | NUR ---
RN OPENING NOTE REPORT WAS ENDORSED BY NIGHT NURSE. PATIENT IS AWAKE AND ALERT SITTING UP IN BED. NO SIGNS OF ANY DISTRESS. PATIENT EDUCATED BUSINESS PROCESS MANAGER LIGHT LIGHT FOR ASSISTANCE. CALL LIGHT IS WITH IN REACH.
[2022-03-26 07:55] LABS: BASOPHILS % (AUTO) 0.9 % (0.0-2.0); EOSINOPHILS # (AUTO) 0.1 K/uL (0.0-0.4); EOSINOPHILS % (AUTO) 1.4 % (0.0-4.0); HEMATOCRIT 41.6 % (36-54); HEMOGLOBIN 13.6 g/dL (14.0-18.0); LYMPHOCYTES # (AUTO) 0.9 K/uL (1.0-5.5); LYMPHOCYTES % (AUTO) 16.3 % (20.5-51.5); MEAN CORPUSCULAR HEMOGLOBIN 30 pg (27-31); MEAN CORPUSCULAR HGB CONC 33 % (32-36); MEAN CORPUSCULAR VOLUME 93 fL (79.0-98.0); MONOCYTES # (AUTO) 0.4 K/uL (0.0-1.0); MONOCYTES % (AUTO) 7.5 % (1.7-9.3); NEUTROPHILS # (AUTO) 3.9 K/uL (1.8-7.7); NEUTROPHILS % (AUTO) 73.9 % (40.0-70.0); PLATELET COUNT (AUTO) 133 K/uL (130-430); RED BLOOD CELL COUNT(AUTO) 4.49 MIL/uL (4.2-6.2); RED CELL DISTRIBUTION WIDTH 15.1 % (9.0-15.0); WHITE BLOOD COUNT (AUTO) 5.3 K/uL (4.8-10.8)
[2022-03-26] MEDS: SEVELAMER CARBONATE 800 MG TABLET PO SCH ×3 (08:00→18:00)
[2022-03-26 08:33] LABS: CALCIUM 8.8 mg/dL (8.4-11.0); POTASSIUM 5.1 mmol/L (3.5-5.1)
[2022-03-26 08:55] LABS: CREATININE 8.44 mg/dL (0.55-1.30)
[2022-03-26] MEDS: TIMOLOL MALEATE 0.25% OPHTHALMIC DROPS 5 ML OP SCH ×2 (09:00→21:00)
[2022-03-26] MEDS: GABAPENTIN 300 MG CAPSULE PO SCH (09:00)
[2022-03-26] MEDS: LOSARTAN POTASSIUM 25 MG TABLET PO SCH ×2 (09:00→21:00)
[2022-03-26] MEDS: FAMOTIDINE 20 MG TABLET PO SCH (09:00)
[2022-03-26] MEDS: OMEGA-3/DHA/EPA/FISH OIL 1 GM CAPSULE PO SCH ×2 (09:00→21:00)
[2022-03-26] MEDS: ASPIRIN 81 MG TABLET(ECOTRIN) PO SCH (09:00)
[2022-03-26] MEDS: CYANOCOBALAMIN 1000 mCg TABLET PO SCH (09:00)
[2022-03-26] MEDS: FOLIC ACID 1 MG TABLET PO SCH (09:00)
[2022-03-26] MEDS: FERROUS SULFATE 300 MG/5 ML UDC PO SCH ×2 (09:00→21:00)
[2022-03-26] MEDS: DORZOLAMIDE 2% OPHTHALMIC SOLN 5ML OP SCH ×3 (09:00→21:00)
--- NOTE | 2022-03-26 09:13 | NUR ---
REFUSING MEDICATION/ REFUSING DIALYSIS AT THIS TIME/ REFUSING VITAL SIGNS PATIENT IS REFUSING EVERYTHING TO STAY IN ROOM, IS SITTING IN CHAIR IN HALLWAY. PATIENT REFUSING MEDICATION, VITALS HE WANTS TO EAT FOOD PAGING DR. TORRES FOR DIET ORDERS. ALSO PAGING FOR CRITICAL. PATIENT SHOWS NO SIGNS OF ANY DISTRESS, BREATHING IS EQUAL AND NON LABORED.
--- NOTE | 2022-03-26 09:15 | NUR ---
PAGED PAGED MATT CAICEDO AT [phone] SPOKE WITH CARLOS
--- NOTE | 2022-03-26 09:18 | NUR ---
Discharg Planning: EDGAR faxed pt referral to [facility] [phone], EDGAR to follow up Addendum: 03/26/22 at 1538 by Sarah MCKEON [facility] [phone] can take pt Tuesday to [facility] Rm [facility]A, VALENCIAP made CM aware. [facility] [phone] can be called on day of discharge charge to be set up transport.
--- NOTE | 2022-03-26 10:00 | NUR ---
SPOKE WITH SURGEON DIET ORDER CHANGED INFORM PATIENT.
--- NOTE | 2022-03-26 12:00 | NUR ---
RN ROUNDING PATIENT IS SITTING IN CHAIR IN HALLWAY. PATIENT IS UPSET WANTS TO GO HOME. EDUCATED HE NEEDS TO HAVE DIALYSIS DONE PRIOR TO LEAVING. PATIENT UNDERSTANDS. PATIENT EDUCATED TO CALL NURSE FOR ASSISTANCE.NO OTHER NEEDS AT THIS TIME.
[2022-03-26 12:27] VITALS: BP_SYST 160
[2022-03-26] MEDS ORDERED: HEPARIN SODIUM,PORCINE 5,000 UNITS/ML VIAL SUBCUT PRN (14:45)
--- NOTE | 2022-03-26 14:58 | NUR ---
HEMODIALYSIS PORT IS NOT WORKING PAGED SURGEON TO INFORM. PATIENT IS LAYING IN BED NO COMPLAINTS AT THIS TIME. CALL LIGHT IS WITH HIM. NO OTHER NEEDS AT THIS TIME.
[2022-03-26 16:00] VITALS: BP_SYST 105; BP_SYST 166
--- NOTE | 2022-03-26 17:25 | NUR ---
WOUND EVALUATION: Wound Consult received from Dr. Musa. Thank you, Dr. Musa, for the consult. Patient received in a Fabi Bed with a mattress, awake, alert, and oriented. Patient is unable to turn independently. Colton Score is a 19. Past Medical History: CKD Stage V, on Hemodialysis, Hyperlipidemia, CAD, Glaucoma, Hypertension, GERD, Anemia of Chronic Disease, Diabetes Mellitus Type 2, Bilateral Forefoot Amputation. Recent Labs: WBC 5.3, RBC 4.49, hemoglobin 13.6, hematocrit 41.6, sodium 133, chloride 95, BUN 71, creatinine 8.44, GFR 7, glucose 139, albumin 3.1. Microbiology: MRSA screen results negative. Blood culture results x2 negative. Intrinsic factors that delay wound healing: Diabetes Mellitus Type 2, CKD Stage V, CAD, Anemia of Chronic Disease. Extrinsic factors that delay wound healing: Decreased mobility. Wound Assessment: 1. Left Forefoot Amputation Site: Acute on chronic forefoot amputation incisional site wound complicated by Diabetes Mellitus, present on admission. Wound bed has 95% yellow slough, 5% dull red tissue. Mild odor, scant yellow drainage. Periwound intact. Wound measures 0.8 cm x 2.5 cm x 0.4 cm. 2. Right Forefoot Amputation Site: Acute on chronic forefoot amputation incisional site wound complicated by Diabetes Mellitus, present on admission. Wound bed has 70% dull pink tissue, 20% black tissue, 10% dull red tissue. Mild odor, scant yellow drainage. Periwound intact. Wound measures 1.0 cm x 1.2 cm. Recommend: Cleanse wounds with normal saline. Apply SurePrep to archana-wounds. Apply Hydrogel to wound beds. Cut Thera-honey sheet to size and place over open wound beds, and apply Hydrogel on top of Thera-honey sheets. Cut calcium alginate dressing to size and place over remainder of closed incisional area for protection. Cover with 4x4 foam dressings. Wrap with Daphne wrap. Perform wound care daily, and as needed for dressing soiling or dislodgement. Also recommend: Reposition patient every 2 hours with pillow support and off-load pressure areas with pillows for pressure re-distribution. Offload, elevate and float bilateral heels with pillows. Perform skin care and monitor skin integrity Q shift. Use moisture barrier cream on buttocks and other moisture susceptible areas QID and as needed for soiling.
[2022-03-26] MEDS ORDERED: HONEY WOUND DRESSING 1 EACH TP PRN (18:00)
--- NOTE | 2022-03-26 18:29 | NUR ---
RN CLOSING NOTE PATIENT IS SITTING IN BED, NO SIGNS OF ANY DISTRESS, BREATHING IS EQUAL AND NON LABORED. ALL SAFETY PRECAUTIONS IN PLACE. CALL LIGHT IS WITH HIM EDUCATED TO USE FOR ASSISTANCE. PATIENT IS STILL REFUSING ALL MEDICATION.SURGEON NEVER CALLED BACK VOICEMAIL ONLY TO CALL BACK HOSPITAL NUMBER PROVIDED
[2022-03-26 19:50] VITALS: BP_SYST 168
--- NOTE | 2022-03-26 19:50 | NUR ---
PM ASSESSMENT; -Pt is a/xo4, resting in bed, French speaking, little Estonian. Pt denies any chest pain,pain,sob,or any acute distress. IV site patent, no s/s any infiltration noted. VS elevated RD=370/97, 71, will give BP medication. Discussed poc,all safety measure, pt verbalized understanding. Pt has rt chest wall for dialysis access, endorsed by Sandra-SHANEKA day shift stated that dialysis nurse said that wasn't working properly, removed just 200ml out from the dialysis access port. Pt is able to use call light w/in reach for assistance. Bed alarmed, side rails x3,call light w/in reach. Cont to monitor pt. Addendum: 03/27/22 at 0810 by [facility], SHANEKA MUNROE LATE ENTRY-DIALYSIS ACCESS-- RED PORT IS NOT WORK, BUT BLUE PORT WORK OK PER DIALYSIS NURSE STATEMENT
[2022-03-26] MEDS: LATANOPROST 2.5 ML DROPS (XALATAN) OP SCH (21:00)
[2022-03-26] MEDS: ATORVASTATIN 20 MG TABLET PO SCH (21:00)
[2022-03-26] MEDS: CARVEDILOL 6.25 MG TABLET (COREG) PO SCH (21:00)
--- NOTE | 2022-03-26 22:30 | NUR ---
NOTES; PT REFUSED MEDICATIONS AND SSI COVERAGE AFTER BLOOD SUGAR RESULT WAS 191. -Pt was upset regarding medications was scheduled late. He stated," I take my medications around 5pm not 9pm or later." Apologized to pt and explained that I wasn't informed that pt wants at particular time. Pt refused to take all medications except accucheck. Pt is still insisting not taking all 2100 meds after explained risks and benefits of taking these medications. Will try to endorse to day shift nurse and call pharmacy to update this matter.
--- NOTE | 2022-03-27 01:00 | NUR ---
NOTES; -Pt is asleep, easily arousably upon approaching pt. Pt refused ricky feet drsg changed. Ricky lower feet drsg cdi elevated with pillow.
--- NOTE | 2022-03-27 02:31 | NUR ---
ROUNDS; -Pt is asleep. No s/s any acute distress noted. Bed alarmed, side rails x3,call light w/in reach. Maintains droplet contact isolation. Cont to monitor pt. Addendum: 03/27/22 at 0233 by [facility] [facility], SHANEKA MUNROE CORRECTION- Pt is not on droplet contact isolation or any isolation.
[2022-03-27 04:14] VITALS: BP_SYST 142
--- NOTE | 2022-03-27 04:23 | NUR ---
ROUNDS; -Pt is asleep. No s/s any acute distress noted. Bed alarmed, side rails x3,call light w/in reach. Cont to monitor pt.
[2022-03-27 07:00] VITALS: BP_SYST 156
--- NOTE | 2022-03-27 07:37 | NUR ---
CLOSING NOTES; PT REFUSED ACCUCHECK -Pt is resting in bed and refused to have blood sugar check. IV site patent drsg cdi. Ricky feet drsg cdi. Dialysis access of rt chest wall drsg cdi. Bed alarmed, side rails x3,call light w/in reach. Endorsed to Jojo to follow up with Dr. Lindquist regarding Dialysis access wasn't working properly and to call pharmacy to change his medications from 2100 to 1700 per pt's request and continue care.
--- NOTE | 2022-03-27 08:00 | NUR ---
Received patient aao x 4, german speaking, vital signs taken, tried to give meds, patient declines. Request to know when his dialysis access will be fixed, denies pain, angry at this time, in no acute distress, will continue to care for. Placed call light to reach.
[2022-03-27] MEDS: TIMOLOL MALEATE 0.25% OPHTHALMIC DROPS 5 ML OP SCH ×2 (09:00→20:36)
[2022-03-27] MEDS: DORZOLAMIDE 2% OPHTHALMIC SOLN 5ML OP SCH ×3 (09:00→20:36)
--- NOTE | 2022-03-27 09:26 | NUR ---
Paged Dr. Lindquist, patient have questions about his dialysis access, patient is very angry at this time, not taking his meds, will await a call back from the Surgeon.
--- NOTE | 2022-03-27 09:40 | NUR ---
Paged Surgeon Dr HORVATH, RE; PERMACATH not working.
[2022-03-27] MEDS: FERROUS SULFATE 300 MG/5 ML UDC PO SCH ×2 (09:44→20:37)
[2022-03-27] MEDS: SEVELAMER CARBONATE 800 MG TABLET PO SCH ×3 (09:44→18:27)
[2022-03-27] MEDS: LOSARTAN POTASSIUM 25 MG TABLET PO SCH ×2 (09:47→20:37)
[2022-03-27] MEDS: GABAPENTIN 300 MG CAPSULE PO SCH (09:48)
[2022-03-27] MEDS: OMEGA-3/DHA/EPA/FISH OIL 1 GM CAPSULE PO SCH ×2 (09:48→20:37)
[2022-03-27] MEDS: FAMOTIDINE 20 MG TABLET PO SCH (09:48)
[2022-03-27] MEDS: ASPIRIN 81 MG TABLET(ECOTRIN) PO SCH (09:48)
[2022-03-27] MEDS: FOLIC ACID 1 MG TABLET PO SCH (09:48)
[2022-03-27] MEDS: CYANOCOBALAMIN 1000 mCg TABLET PO SCH (09:50)
--- NOTE | 2022-03-27 09:56 | NUR ---
Nutrition Consult RD received Nutrition Consult d/t bilateral foot amputation sites 03/26/22 1800. Pt was seen and assessed by internal review and audit compliance and RD 03/25. Please refer to Nutrition Assessment 03/25 for details.
--- NOTE | 2022-03-27 10:00 | NUR ---
Dr. Lindquist called back, asked to speak with patient, gave patient the phone, patient placed phone on bed due to unable o communicate, Dr. Lindquist informed to call primary care to inform. Primary care made aware. Patient made aware.
--- NOTE | 2022-03-27 10:10 | NUR ---
Called Dr. Foster to inform that Dr. TORRES is consulting for a permacath placement. Patient made aware, patient still want to be a AMA.
--- NOTE | 2022-03-27 10:14 | NUR ---
CONSULTATION PAGED/CALLED Reason for Consultation: [] PERMACATH INSERTION Person Who was Notified: [] DR WEBB Consulting Physician: [] DR WEBB Cash Reconciliation Specialist Specialty: [] VASCULAR SURGEON Ordering Physician: [] DR MELISSA WEBB REFUSED THE CONSULT FOR HE DOES NOT DO PERMACATH INSERTION.
--- NOTE | 2022-03-27 10:17 | NUR ---
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
--- NOTE | 2022-03-27 10:20 | NUR ---
YANDEL Marshall translated for RN and reviewed plan of care with patient.
--- NOTE | 2022-03-27 10:21 | NUR ---
CASE MANAGEMENT AWARE THAT DR WEBB NEEDS LETTER OF AGREEMENT TASANEER AWARE THAT DR WEBB WILL ONLY DO THE PERMA CATH IF THERE IS LETTER OF AGREEMENT FROM ADMINISTRATION.
--- NOTE | 2022-03-27 12:09 | NUR ---
Patient in bed at this time, patient was going out of his room periodically stating he wants to leave, patient refused meds, will continue to monitor.
[2022-03-27 14:34] VITALS: BP_SYST 144
[2022-03-27] MEDS ORDERED: ALTEPLASE 2 MG VIAL MC ONE ×2 (17:00→18:00)
[2022-03-27 17:09] VITALS: BP_SYST 151
--- NOTE | 2022-03-27 18:22 | NUR ---
Angelica MUNROEbible reader Nurse administer the Activase and will come back for dialysis tonight, patient made aware.
[2022-03-27 19:30] VITALS: BP_SYST 158
--- NOTE | 2022-03-27 19:30 | NUR ---
PM ASSESSMENT; -Pt is a/xo4, resting in bed, Greek speaking, little Serbian. Pt denies any chest pain,pain,sob,or any acute distress. IV site patent, no s/s any infiltration. Discussed poc,all safety measure, pt verbalized understanding. Pt is able to use call light w/in reach for assistance. Bed alarmed, side rails x3,call light w/in reach. Cont to monitor pt.
[2022-03-27] MEDS: LATANOPROST 2.5 ML DROPS (XALATAN) OP SCH (20:36)
[2022-03-27] MEDS: CARVEDILOL 6.25 MG TABLET (COREG) PO SCH (20:36)
[2022-03-27] MEDS: ATORVASTATIN 20 MG TABLET PO SCH (20:37)
--- NOTE | 2022-03-27 20:37 | NUR ---
NOTES; -Pt refused all medications and accucheck even after explained risks and benefits of taking medications and monitor blood sugar, pt verbalized he doesn't care and don't want them.
--- NOTE | 2022-03-27 23:28 | NUR ---
ROUNDS; -Pt is resting in bed comfortably. NO s/s any acute distress noted. Dilaysis nurse is at bedside still in hemodialysis process. Cont to monitor pt.
--- NOTE | 2022-03-28 00:28 | NUR ---
NOTES; HEMODIALYSIS COMPLETED WITH 1400ML REMOVED PER DIALYSIS NURSE STATEMENT -HEMODIALYSIS NURSE STATED THAT PERMACATH OF LEFT CHEST WALL IS NOW WORKING PROPERLY, VI=181/77 AND 68. CONTINUE TO MONITOR PT.
[2022-03-28 01:50] VITALS: BP_SYST 102
--- NOTE | 2022-03-28 03:10 | NUR ---
NOTES; -Pt is asleep. No ss any acute distress noted. Cont to monitor pt.
--- NOTE | 2022-03-28 06:59 | NUR ---
CLOSING NOTES; -Pt is a/xo4, resting in bed. No s/s any chest pain,pain,sob,or any acute distress noted. IV site patent, no s/s any infiltration. Bed alarmed, side rails x3,call light w/in reach. Will endorse to next nurse to cont care.
[2022-03-28 08:00] VITALS: BP_SYST 156
[2022-03-28] MEDS: SEVELAMER CARBONATE 800 MG TABLET PO SCH ×3 (08:00→17:55)
--- NOTE | 2022-03-28 08:00 | NUR ---
Received patient in bed aao x 4, vital signs taken, patient asked for when he is getting discharged, patient appear angry, states he want to leave AMA. Patient states he does not want any of his meds when offered, teach to be compliant with treatment plan, patient states he really have to go. Will continue to monitor, call light placed to reach.
[2022-03-28] MEDS: OMEGA-3/DHA/EPA/FISH OIL 1 GM CAPSULE PO SCH ×2 (09:00→21:02)
[2022-03-28] MEDS: GABAPENTIN 300 MG CAPSULE PO SCH (09:00)
[2022-03-28] MEDS: DORZOLAMIDE 2% OPHTHALMIC SOLN 5ML OP SCH ×3 (09:00→21:07)
[2022-03-28] MEDS: ASPIRIN 81 MG TABLET(ECOTRIN) PO SCH (09:00)
[2022-03-28] MEDS: CYANOCOBALAMIN 1000 mCg TABLET PO SCH (09:00)
[2022-03-28] MEDS: LOSARTAN POTASSIUM 25 MG TABLET PO SCH ×2 (09:00→21:02)
[2022-03-28] MEDS: FAMOTIDINE 20 MG TABLET PO SCH (09:00)
[2022-03-28] MEDS: FOLIC ACID 1 MG TABLET PO SCH (09:00)
[2022-03-28] MEDS: FERROUS SULFATE 300 MG/5 ML UDC PO SCH ×2 (09:00→21:05)
[2022-03-28] MEDS: TIMOLOL MALEATE 0.25% OPHTHALMIC DROPS 5 ML OP SCH ×2 (09:00→21:06)
[2022-03-28 11:20] VITALS: BP_SYST 147
--- NOTE | 2022-03-28 12:00 | NUR ---
Patient in bed watching TV, in no acute distress, patient still refusing medication and accucheck., Call light noted to reach.
[2022-03-28 15:30] VITALS: BP_SYST 160
--- NOTE | 2022-03-28 16:27 | NUR ---
ARRANGEMENT RE DISCHARGE DR HERNANDEZ CAME AND ORDERED TO DISCHARGE PATIENT BACK TO [facility], PATIENT HAD HEMODIALYSIS LAST NIGHT USING HIS PERMA CATHETER, ACTIVASE CATHFLO WAS INSTILLED TO PERMA CATH SITE 2 HOURS PRIOR TO DIALYSIS LAST NIGHT. DR TORRES MADE AWARE AND ORDERED TO DC PATIENT BACK TO [facility]. NOTIFED [facility] THAT PATIENT WILL GO BACK TODAY WITH NEW PERMA CATHETER, JESSIKA FROM [facility] SAID THAT THEY DO NOT HAVE AN ADMITTING NURSE TODAY, TO FOLLOW UP TOMORROW RE DISCHARGE OF PATIENT.
[2022-03-28 19:00] VITALS: BP_SYST 175
--- NOTE | 2022-03-28 19:15 | NUR ---
change of shift.pt.presents quiescent affect.langauge barrier extant;japanese pt's primary language.pt.presents hx hemo-dialysis; h/d access perma cath location:lt.svc.pt.presents lower extremity wounds;feet.dsg intact.absent drainage/odor;foul.pt.presents hx diabetes.general status stable.respiratory status stable;unlabored@room air.call light/telephone w/in access of the pt.
[2022-03-28 20:00] VITALS: BP_SYST 175
--- NOTE | 2022-03-28 20:00 | NUR ---
pt.assessed.v/s assessed values wnl.no c/o pain,nausea.pt.inquired when he is to be transferred;return to [facility].i have apprised the pt.in the am;03/29/22.sdch apprised that staff;admitting nsg not available:03/28/22 to receive the pt.pt.apprised that snacks/beverages are available w/in the shift.pt.requested sandwhich/coffee provided.call light/telephone w/in access of the pt.
[2022-03-28] MEDS: INSULIN REGULAR, HUMAN 100 UNITS/ML, 3 ML VIAL (humuLIN R) SUBCUT PRN (20:58)
--- NOTE | 2022-03-28 21:00 | NUR ---
2100 p medications administered.pt.capable to ingest the po medications w/out difficulty.insulin;regular:6-u administered. per the sliding scale.call light/telephone w/in access of the pt.
[2022-03-28] MEDS: CARVEDILOL 6.25 MG TABLET (COREG) PO SCH (21:01)
[2022-03-28] MEDS: ATORVASTATIN 20 MG TABLET PO SCH (21:02)
[2022-03-28] MEDS: LATANOPROST 2.5 ML DROPS (XALATAN) OP SCH (21:08)
--- NOTE | 2022-03-28 22:00 | NUR ---
pt.assessed.pt.quiescent.pt.conversing w family via telephone.no c/o pain,nausea.no requests posited@this hour.pt.capable to reposition self.call light/telephone w/in access of the pt.
--- NOTE | 2022-03-29 | NUR ---
pt.assessed.v/s assessed values wnl.no c/o pain,nausea.no requests posited@this hour.pt,.capable to reposition self. call light/telephone w/in access of the pt.
[2022-03-29 00:55] VITALS: BP_SYST 148
--- NOTE | 2022-03-29 01:30 | NUR ---
pt.requested blood glucose assessment.pt.stated he feels the blood glucose is low.i have assessed the blood glucose value 59mg/dl.snacks provided.to assess the pt.blood glucose status per protocol.
--- NOTE | 2022-03-29 02:00 | NUR ---
pt.assessed.blood glucose assessed value:123mg/dl.no additional snacks necessary.no c/o pain,nausea.pt.capable to reposition self.call light/telephone w/in access of the pt.
--- NOTE | 2022-03-29 04:00 | NUR ---
pt.assessed.pt.quiescent;somnolent.per flacc pain mgx pt.absent facial grimaces/body posturing.pt.capable to reposition self.dsg;wounds;feet.intact.call light/telephone w/in access of the pt.
[2022-03-29] MEDS: INSULIN REGULAR, HUMAN 100 UNITS/ML, 3 ML VIAL (humuLIN R) SUBCUT PRN (06:16)
--- NOTE | 2022-03-29 06:22 | NUR ---
pt.assessed.blood glucose assessed value:174mg/dl.per sliding scale pt.to receive insulin;regular;-2-u.pt.refused insulin. pt.stated he prefers to eat breakfast prior to administration of insulin.pt.inquiry r/e;time of breakfast.i conveyed to the pt.breakfast passed@0700a.pt.stated he is hungry.i offered snacks.pt.refused the snacks.call light/telephone placed w/in access of the pt.
[2022-03-29 08:00] VITALS: BP_SYST 150
--- NOTE | 2022-03-29 09:00 | NUR ---
receive the patient from the night rn in a stable condition with admitting diagnosis of hyperkalemia aox4 luxembourgish speaking . no complain of pain at this time . no sign and symptoms of respiratory distress . will continue to monitor .
--- NOTE | 2022-03-29 11:16 | NUR ---
Discharge Planning: EDGAR arranged transport with [facility] [phone] BLS 1:00pm requested to [facility] [phone] Rm 15A. EDGAR made CM and nurse aware. Addendum: 03/29/22 at 1227 by Sarah Kwon DP [facility] [phone] BLS 3:30pm P&I Med Transport to [facility] [phone] Rm 15A. EDGAR made nurse aware.
--- NOTE | 2022-03-29 11:23 | NUR ---
receive an order for discharge to [facility]
[2022-03-29] MEDS: SEVELAMER CARBONATE 800 MG TABLET PO SCH ×2 (11:25→12:14)
--- NOTE | 2022-03-29 11:25 | NUR ---
jose m the resource nurse gave report to Angeli , the accepting rn in [facility] . being md leone as the admitting doctor
[2022-03-29] MEDS: ASPIRIN 81 MG TABLET(ECOTRIN) PO SCH (11:26)
[2022-03-29] MEDS: FERROUS SULFATE 300 MG/5 ML UDC PO SCH (11:26)
[2022-03-29] MEDS: FOLIC ACID 1 MG TABLET PO SCH (11:27)
[2022-03-29] MEDS: LOSARTAN POTASSIUM 25 MG TABLET PO SCH (11:27)
[2022-03-29] MEDS: OMEGA-3/DHA/EPA/FISH OIL 1 GM CAPSULE PO SCH (11:27)
[2022-03-29] MEDS: GABAPENTIN 300 MG CAPSULE PO SCH (11:27)
[2022-03-29] MEDS: CYANOCOBALAMIN 1000 mCg TABLET PO SCH (11:27)
[2022-03-29] MEDS: FAMOTIDINE 20 MG TABLET PO SCH (11:28)
[2022-03-29 12:26] VITALS: BP_SYST 139
[2022-03-29 12:42] VITALS: BP_SYST 150
--- NOTE | 2022-03-29 15:00 | NUR ---
remove all the iv and id in preparation for discharge to [facility]
--- NOTE | 2022-03-29 15:30 | NUR ---
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 patient in a stable condition .
--- NOTE | 2022-03-29 19:50 | NUR ---
RN forgot to give transfer paperwork to EMT Paperwork faxed to [facility] @ fax number [phone]
--- NOTE | 2022-03-30 08:32 | NUR ---
Dispo code 03
== END 2022-03-29 15:45 | DRG 466 ==
LOC: SED 11:15 → STU 15:02 → SMU 03-21 23:50
PROVIDERS: ADMIT Internal Medicine; ATTEND Internal Medicine
PROC: 5A1D70Z Performance of Urinary Filtration, Intermittent, Less than 6 Hours Per Day (ICD-10-PCS; 2022-03-20)
PROC: 5A1D70Z Performance of Urinary Filtration, Intermittent, Less than 6 Hours Per Day (ICD-10-PCS; 2022-03-22)
PROC: 5A1D70Z Performance of Urinary Filtration, Intermittent, Less than 6 Hours Per Day (ICD-10-PCS; 2022-03-22)
PROC: 5A1D70Z Performance of Urinary Filtration, Intermittent, Less than 6 Hours Per Day (ICD-10-PCS; 2022-03-24)
PROC: 02HV33Z Insertion of Infusion Device into Superior Vena Cava, Percutaneous Approach (ICD-10-PCS; 2022-03-25)
PROC: B5181ZA Fluoroscopy of Superior Vena Cava using Low Osmolar Contrast, Guidance (ICD-10-PCS; 2022-03-25)
PROC: B548ZZA Ultrasonography of Superior Vena Cava, Guidance (ICD-10-PCS; 2022-03-25)
PROC: 0JH63XZ Insertion of Tunneled Vascular Access Device into Chest Subcutaneous Tissue and Fascia, Percutaneous Approach (ICD-10-PCS; principal; 2022-03-25 16:30)
PROC: 5A1D70Z Performance of Urinary Filtration, Intermittent, Less than 6 Hours Per Day (ICD-10-PCS; 2022-03-26)
PROC: 5A1D70Z Performance of Urinary Filtration, Intermittent, Less than 6 Hours Per Day (ICD-10-PCS; 2022-03-27)
DX: T82.42XA Displacement of vascular dialysis catheter, initial encounter (principal); I12.0 Hypertensive chronic kidney disease with stage 5 chronic kidney disease or end stage renal disease; I31.39 Other pericardial effusion (noninflammatory); I42.0 Dilated cardiomyopathy; D63.8 Anemia in other chronic diseases classified elsewhere; E83.51 Hypocalcemia; N18.6 End stage renal disease; E11.22 Type 2 diabetes mellitus with diabetic chronic kidney disease; E87.5 Hyperkalemia; Z99.2 Dependence on renal dialysis; E03.9 Hypothyroidism, unspecified; E11.51 Type 2 diabetes mellitus with diabetic peripheral angiopathy without gangrene; Z20.822 Contact with and (suspected) exposure to COVID-19; Y83.8 Other surgical procedures as the cause of abnormal reaction of the patient, or of later complication, without mention of misadventure at the time of the procedure; E78.5 Hyperlipidemia, unspecified; G62.9 Polyneuropathy, unspecified; I25.10 Atherosclerotic heart disease of native coronary artery without angina pectoris; K21.9 Gastro-esophageal reflux disease without esophagitis; Z87.891 Personal history of nicotine dependence; Z89.439 Acquired absence of unspecified foot; Z91.15 Patient's noncompliance with renal dialysis; Z91.199 Patient's noncompliance with other medical treatment and regimen due to unspecified reason; Z79.899 Other long term (current) drug therapy; Y92.89 Other specified places as the place of occurrence of the external cause
CPT/HCPCS: 36415; 71045; 76000; 80048; 80053; 81000; 82009; 82962; 84484; 85007; 85025; 85027; 85610-TC; 85730-TC; 86886; 86900; 86901; 87040; 87081; 90935; 90937; 93005; 93306; 96374; 99285; G0378; J0610; J0690; J1644; J1815; J2250; J2704; J2997; J3010; J7030

== ENCOUNTER 2023-04-13 10:54 | Inpatient (IN) | payer MEDICAID ==
[~2023-04-13] VITALS: Ht 167.6 cm; Wt 59.1 kg
[~2023-04-13 10:54] MED LIST: ACET325T53 PO; ASPI-1393 PO; CARV6.2554 PO; CLOP100P MC; CYAN100010 PO; DORZ1DRO7 OP; FAMO10TA41 PO; FER300L PO; FOLI-43 PO; HYDR-3927 PO; LIP80 PO; LOSA-412 PO; NEU300 PO; OMEG-158 PO; REN800 PO; XALEYE OP
[2023-04-13 10:55] VITALS: BP_SYST 168; PULSE 65; RESP 17; TEMP 98.3; O2SAT 98
[2023-04-13] MEDS ORDERED: INSU100V53 SUBCUT (13:09)
[2023-04-13] MEDS ORDERED: NEPH PO (13:09)
[2023-04-13] MEDS ORDERED: BISA-140 PO (13:09)
[2023-04-13] MEDS ORDERED: OMEG100037 PO (13:09)
[2023-04-13] MEDS ORDERED: DOCU-144 PO (13:09)
[2023-04-13] MEDS ORDERED: NEU300 PO (13:09)
[2023-04-13] MEDS ORDERED: SSNOVOLOG SUBCUT (13:09)
[2023-04-13 15:30] LABS: BASOPHILS % (AUTO) 0.6 % (0.0-2.0); EOSINOPHILS # (AUTO) 0.1 K/uL (0.0-0.4); EOSINOPHILS % (AUTO) 1.9 % (0.0-4.0); HEMATOCRIT 27.9 % (36-54); HEMOGLOBIN 9.1 g/dL (14.0-18.0); LYMPHOCYTES # (AUTO) 1.1 K/uL (1.0-5.5); LYMPHOCYTES % (AUTO) 21.1 % (20.5-51.5); MEAN CORPUSCULAR HEMOGLOBIN 32 pg (27-31); MEAN CORPUSCULAR HGB CONC 33 % (32-36); MEAN CORPUSCULAR VOLUME 99 fL (79.0-98.0); MONOCYTES # (AUTO) 0.4 K/uL (0.0-1.0); MONOCYTES % (AUTO) 7.7 % (1.7-9.3); NEUTROPHILS # (AUTO) 3.4 K/uL (1.8-7.7); NEUTROPHILS % (AUTO) 68.7 % (40.0-70.0); PLATELET COUNT (AUTO) 135 K/uL (130-430); RED BLOOD CELL COUNT(AUTO) 2.83 MIL/uL (4.2-6.2); RED CELL DISTRIBUTION WIDTH 13.8 % (9.0-15.0)
[2023-04-13 15:58] LABS: ALANINE AMINOTRANSFERASE 22 U/L (12-78); ALBUMIN 2.8 g/dL (3.4-4.8); ANION GAP 14 (5-15); ASPARTATE AMINOTRANSFERASE 11 U/L (10-37); CALCIUM 7.9 mg/dL (8.4-11.0); CARBON DIOXIDE 21 mmol/L (23-29); CHLORIDE 104 mmol/L (98-107); GFR AFRICAN AMERICAN 6 mL/min (>90); GLUCOSE 112 mg/dL (74-106); PHOSPHORUS 8.1 mg/dL (2.7-4.5); POTASSIUM 5.5 mmol/L (3.5-5.1); SODIUM SERUM 139 mmol/L (136-145); TOTAL BILIRUBIN 0.4 mg/dL (0.0-1.0); TOTAL PROTEIN, SERUM 6.8 g/dL (6.4-8.3); UREA NITROGEN, BLOOD 77 mg/dL (8-21)
[2023-04-13 16:02] LABS: GFR NON AFRICAN-AMERICAN 5 mL/min (>90)
[2023-04-13 16:04] LABS: CREATININE 12.14 mg/dL (0.55-1.30)
[2023-04-13] MEDS: SEVELAMER CARBONATE 800 MG TABLET PO SCH (18:00)
[2023-04-13] MEDS ORDERED: CARVEDILOL 6.25 MG TABLET (COREG) PO ONE (18:00)
[2023-04-13 20:00] VITALS: BP_SYST 148; PULSE 66; RESP 16; TEMP 98.9; O2SAT 96
[2023-04-13] MEDS: LOSARTAN POTASSIUM 25 MG TABLET PO SCH (21:00)
[2023-04-13] MEDS ORDERED: HEPARIN SODIUM, PORCINE 10,000 UNITS/ 10 ML VIAL MC ONE ×2 (22:00)
[2023-04-13] MEDS ORDERED: HEPARIN SODIUM,PORCINE 5,000 UNITS/ML VIAL ONE (22:14)
[2023-04-13 23:04] VITALS: BP_SYST 105; PULSE 69; RESP 18; TEMP 99.1; O2SAT 95
[2023-04-14 08:45] VITALS: BP_SYST 171; PULSE 71; RESP 18; TEMP 98.1; O2SAT 96
[2023-04-14] MEDS: SEVELAMER CARBONATE 800 MG TABLET PO SCH ×3 (08:48→17:36)
[2023-04-14] MEDS: LOSARTAN POTASSIUM 25 MG TABLET PO SCH (08:48)
[2023-04-14] MEDS ORDERED: CARVEDILOL 6.25 MG TABLET (COREG) PO SCH (09:00)
[2023-04-14 12:32] VITALS: BP_SYST 159; PULSE 70; RESP 17; TEMP 98.7; O2SAT 98
[2023-04-14 14:48] VITALS: BP_SYST 146; PULSE 68; RESP 18; TEMP 97.6; O2SAT 94
[2023-04-14 16:35] VITALS: BP_SYST 158; PULSE 72; RESP 17; TEMP 98.2; O2SAT 97
[2023-04-14] MEDS: EPOETIN ALFA-EPBX 4,000 UNITS/ML VIAL SUBCUT SCH ×2 (17:00→17:35)
== END 2023-04-14 19:00 | DRG 425 ==
LOC: SED 10:54 → SMU 12:11
PROVIDERS: ADMIT Internal Medicine; ATTEND Internal Medicine
PROC: 5A1D70Z Performance of Urinary Filtration, Intermittent, Less than 6 Hours Per Day (ICD-10-PCS; principal; 2023-04-13)
PROC: 5A1D70Z Performance of Urinary Filtration, Intermittent, Less than 6 Hours Per Day (ICD-10-PCS; 2023-04-14)
DX: E87.5 Hyperkalemia (principal); U07.1 COVID-19; I12.0 Hypertensive chronic kidney disease with stage 5 chronic kidney disease or end stage renal disease; N18.6 End stage renal disease; D63.1 Anemia in chronic kidney disease; E11.22 Type 2 diabetes mellitus with diabetic chronic kidney disease; E11.40 Type 2 diabetes mellitus with diabetic neuropathy, unspecified; E78.5 Hyperlipidemia, unspecified; E03.9 Hypothyroidism, unspecified; I25.10 Atherosclerotic heart disease of native coronary artery without angina pectoris; Z99.2 Dependence on renal dialysis; Z79.899 Other long term (current) drug therapy; Z79.4 Long term (current) use of insulin
CPT/HCPCS: 36415; 80053; 83735; 83880; 84100; 84484; 85025; 87081; 90935; 90937; 99285; J1644; Q5106